=== PATIENT | male | born 1955 | race Caucasian/White ===

== ENCOUNTER 2020-10-01 06:45 | Inpatient (IN) ==
--- NOTE | 2020-08-29 13:52 | PAT Medication Instructions ---
Medication Instructions Date of Service August 29, 2020 Home Medications celecoxib 100 mg PO BID ASK your surgeon for instructions celecoxib 100 mg PO BID Other Notes If you have any questions please call us at [phone] or [phone] or [phone] or [phone]
--- NOTE | 2020-09-04 09:44 | Anesthesiology Consultation ---
Date of Service September 04, 2020 Assessment & Plan (1) Encounter for pre-operative examination: COVID screening: Per assessment on 09/04: Travel screen negative, no known COVID- 19 positive contacts or current COVID-19 related symptoms. Surgeon arranging preop COVID testing. Awaiting results. Chart Review Chart Review: Acceptable Risk for Surgery and Patient seen in Pre Admission Testing Teaching & Discussion Pre-Anesthesia Teaching/Discussion Notes: Instructed NPO after midnight before surgery,except medications with 15 cc of water. Medication instructions provided according to the PAT guidelines. History Surgery Operation Date: 10/01/20 07:15 Proposed Procedures p Right Total Hip Arthroplasty Uncemented - Olivier Lewis DO Height/Weight Height: 6 ft 1 in Weight: 98.6 kg Allergies Allergy/AdvReac Type Severity Reaction Status Date / Time No Known Allergies Allergy Verified 08/26/20 14:22 Medications Home Medications Medication Instructions Recorded Confirmed Last Taken celecoxib 100 mg PO BID 08/26/20 08/26/20 Unknown Past Medical History Medical History Anxiety No meds Depression No meds Hip pain Hx of multiple concussions Most recent 3 yrs ago > no residual effects Irregular heart beats Remote hx (felt r/t episodes of hypoglycemia) > no recent issues (NSR on preop EKG 09/04/20) Sleep apnea No device Exercise / Class Metabolic Activity III < 4 Walking/Shop/Light housework Past Surgical History Surgical History History of colonoscopy History of tonsillectomy History of tooth extraction Hx of vasectomy Past Anesthesia History No Hx of Anesthesia Complications and No Family Hx of Anesthesia Complications History of PONV No Hx of PONV and Hx of Motion Sickness (occasional) Social History Smoking Status: Former smoker Do You Dip or Chew Tobacco: No Smoking End Date: Quit 1979 Alcohol type: beer and hard liquor alcohol intake frequency: a few times a month Hx Substance Use: No substance use type: does not use Review of Systems Patient denies chest pain, shortness of breath, fever, chills, cough, wheezing, palpitations. Physical Exam Vital Signs VITALS BP 125/70 P 68 TEMP 98.0 SP02 96%RA RESP 16 PHYSICAL Full cervical extension range of motion. Full TMJ range of motion. TMD 3 finger breaths Mallampati Score 2 Dentition: missing molars Lungs: clear throughout to auscultation Cardiac: regular rate and rhythm, no murmurs noted Spine: normal Carotid arteries: negative bruit Extremities: no edema Trimmed tang Testing Laboratory Results 09/04/20 10:11 09/04/20 10:11 PT 10.4 Seconds (9.0-12.0) 09/04/20 10:11 INR 1.0 (0.9-1.1) 09/04/20 10:11 APTT 26.8 Seconds (21.0-31.0) 09/04/20 10:11 Hemoglobin A1c 5.8 % (4.5-5.6) H 09/04/20 10:11 Urine Color Yellow 09/04/20 10:11 Urine Appearance Clear (Clear) 09/04/20 10:11 Urine pH 5.0 (4.5-7.5) 09/04/20 10:11 Ur Specific [place] 1.026 (1.000-1.030) 09/04/20 10:11 Urine Protein Trace (Negative) H 09/04/20 10:11 Urine Glucose (UA) Negative (Negative) 09/04/20 10:11 Urine Ketones Negative (Negative) 09/04/20 10:11 Urine Nitrite Negative (Negative) 09/04/20 10:11 Ur Leukocyte Esterase Negative (Negative) 09/04/20 10:11 Urine WBC (Auto) 1-5 /hpf (0-5) 09/04/20 10:11 Urine RBC (Auto) 0-4 /hpf (0-4) 09/04/20 10:11 U Hyaline Cast (Auto) 1-5 /lpf (0-5) 09/04/20 10:11 U Epithel Cells (Auto) 0-5 /lpf (0-5) 09/04/20 10:11 Urine Bacteria (Auto) Negative (Negative) 09/04/20 10:11 Blood Type O Positive 09/04/20 10:11 Antibody Screen NEGATIVE 09/04/20 10:11 Electrocardiogram Date: 09/04/20 Findings: + NSR @ (66) Chest X-Ray Date: 09/04/20 Findings: + NAD
[2020-09-04 10:47] LABS: Basophils # (auto) 0.02 K/uL (0-0.2); Basophils % (auto) 0.3 %; Eosinophils % (auto) 1.3 %; Hematocrit (blood only) 43.4 % (42-52); Hemoglobin 15.1 g/dL (14.0-18.0); Immature Granulocytes # (auto) 0.02 K/uL (0.00-0.02); Immature Granulocytes % (auto) 0.3 %; Lymphocytes % (auto) 29.5 %; Mean Corpuscular Hemoglobin 31.1 pg (25-34); Mean Corpuscular Hgb Conc 34.8 g/dL (32-36); Mean Corpuscular Volume 89.3 fL (80-100); Mean Platelet Volume 9.1 fL (7.4-10.4); Monocytes # (auto) 0.59 K/uL (0.11-0.59); Monocytes % (auto) 7.9 %; Neutrophils # (auto) 4.53 K/uL (1.4-6.5); Neutrophils % (auto) 60.7 %; Platelet Count 264 K/uL (130-400); RDW Coefficient of Variation 13.1 % (11.5-14.5); Red Blood Count 4.86 M/uL (4.7-6.1); White Blood Count 7.46 K/uL (4.8-10.8)
[2020-09-04 10:52] LABS: Appearance Urine Clear (Clear); Bacteria Urine Automated Negative (Negative); Bilirubin Urine Negative (Negative); Blood Urine Negative (Negative); Color Urine Yellow; Epithelial Cell Urine Auto 0-5 /lpf (0-5); Glucose Urine UA Negative (Negative); Ketones Urine Negative (Negative); Leukocyte Esterase Urine Negative (Negative); Nitrite Urine Negative (Negative); Protein Urine Trace (Negative); RBC Urine Automated 0-4 /hpf (0-4); Specific Gravity Urine 1.026 (1.000-1.030); Urobilinogen Urine Negative (Negative)
[2020-09-04 10:54] LABS: Estimated Average Glucose 120 mg/dl; Hemoglobin A1C 5.8 % (4.5-5.6)
--- NOTE | 2020-09-04 10:59 | XRay Report ---
XR chest Pre-admission PA/Lat CLINICAL HISTORY: Preoperative evaluation. COMPARISON STUDY: No previous studies for comparison. FINDINGS: Lung volumes are normal. Lungs are clear. There is no pneumothorax or pleural effusion. Car diac size is normal. Mediastinal contours are normal. There is no evidence for pulmonary edema. IMPRESSION: No acute cardiopulmonary findings. ACT 112: Negative or not required by law. Electronically signed by: Rickie Lazo M.D. 09/04/2020 10:57 AM
[2020-09-04 11:05] LABS: Partial Thromboplastin Time 26.8 Seconds (21.0-31.0); Prothrombin Time 10.4 Seconds (9.0-12.0)
--- NOTE | 2020-09-04 11:38 | Electrocardiogram Report ---
Test Reason : Blood Pressure : / mmHG Vent. Rate : 066 BPM Atrial Rate : 066 BPM P-R Int : 142 ms QRS Dur : 090 ms QT Int : 426 ms P-R-T Axes : 068 047 066 degrees QTc Int : 446 ms Normal sinus rhythm Normal ECG No previous ECGs available Confirmed by Colby Pinto ([id number]) on 09/04/2020 11:38:12 AM Referred By: Olivier Lewis Confirmed By:Colby Pinto
[2020-09-04 12:39] LABS: Albumin Level 3.8 gm/dl (3.4-5.0); Calcium 8.9 mg/dl (8.5-10.1); Creatinine Clr Calc Pharmacy 91.9 ml/min; Est GFR (African American) 92.2; Est GFR (Non-African American) 79.6; Potassium 4.5 mmol/L (3.5-5.1)
--- NOTE | 2020-09-28 13:04 | History & Physical Report ---
Date of Service October 01, 2020 Assessment & Plan (1) Degenerative joint disease of right hip: I have indicated the patient for right anterior total hip replacement. The risks, benefits and complications of surgery were explained to the patient which include but not limited to infection, acute blood loss, DVT/PE, injury to nerves, vessels, bone, soft tissue, arthrofibrosis, chronic pain, failure of the prosthesis, hip dislocation, leg length discrepancy, need for additional surgery, cardiac and pulmonary events and . The patient wished to proceed with surgery and informed consent was obtained at this time. We will plan for 81mg ASA BID post-operatively for DVT prophylaxis. Upon discharge the patient will be discharged home with home health services. Appropriate clearances by PCP were obtained. History of Present Illness Chief Complaint: Right hip pain/DJD Primary Care Provider: Huy Ruby MD The patient is a 64 year old male who presents with complaints of severe right hip pain and DJD. The patient has failed outpatient conservative treatments to this point which included NSAIDs, IA corticosteroid injection, home exercise/walking program. The patient's pain and limited function have progressed to the point where they severely hinder their activities of daily living and they no longer tolerate exercise programs. They are requesting to proceed with total hip replacement surgery. Allergies Allergy/AdvReac Type Severity Reaction Status Date / Time No Known Allergies Allergy Verified 10/01/20 07:37 Home Medications Medication Instructions Recorded Confirmed Type celecoxib 100 mg PO BID 08/26/20 10/01/20 History Past Med/Surg History Medical History Anxiety No meds Depression No meds Hip pain Hx of multiple concussions Most recent 3 yrs ago > no residual effects Irregular heart beats Remote hx (felt r/t episodes of hypoglycemia) > no recent issues (NSR on preop EKG 09/04/20) Sleep apnea No device Surgical History History of colonoscopy History of tonsillectomy History of tooth extraction Hx of vasectomy Social History Smoking Status: Former smoker Smoking End Date: Quit 1979; Second Hand Exposure: No; Do You Dip or Chew Tobacco: No; Tobacco Cessation Education Requested by Patient: No Hx Substance Use: No Preferred Language: Japanese Communication Ability: Effective Food Operations Manager Required: No Beliefs That Will Affect Care: None Current Living Situation: Spouse Other Information That Helps Us Care for You: No Feels Safe at Home: Yes Safety Concerns: Feels Safe At This Time Assistive Devices: Crutches Review of Systems Review of Systems: All systems reviewed & are unremarkable except as noted in HPI & below Constitutional: as per Subjective / HPI Physical Exam Physical Exam: RLE NVSI +EHL/FHL/TA/GS SILT grossly, +2 DP pulse, compartments soft NT, limited painful ROM of the hip, antalgic gait. Constitutional: WD/WN, vitals as above Eyes: PERRL, conjunctivae normal, anicteric sclerae ENMT: external ear and nose normal, oropharynx normal Neck: trachea midline, no thyromegaly Respiratory: normal respiratory effort, lungs clear to auscultation Cardiovascular: RRR, no murmur, no edema Gastrointestinal (Abdomen): normal bowel sounds, soft, nontender, no hepatosplenomegaly Musculoskeletal: no cyanosis or clubbing, extremities motor strength 5/5 Skin: no rashes, warm and dry Neurologic: patellar DTR's 2+ bilat, sensation intact Psychiatric: A+Ox3, euthymic affect Lymphatic: no cervical or axillary lymphadenopathy Results & Data Results & Data ([facility]) Diagnostic Findings Multiple views of the hip demonstrates severe DJD with complete loss of the join t space. +osteophytes, +sclerosis, +subchondral cysts. Pre Admission Testing Addendum Laboratory Results 09/04/20 10:11 09/04/20 10:11 PT 10.4 Seconds (9.0-12.0) 09/04/20 10:11 INR 1.0 (0.9-1.1) 09/04/20 10:11 APTT 26.8 Seconds (21.0-31.0) 09/04/20 10:11 Hemoglobin A1c 5.8 % (4.5-5.6) H 09/04/20 10:11 Urine Color Yellow 09/04/20 10:11 Urine Appearance Clear (Clear) 09/04/20 10:11 Urine pH 5.0 (4.5-7.5) 09/04/20 10:11 Ur Specific [place] 1.026 (1.000-1.030) 09/04/20 10:11 Urine Protein Trace (Negative) H 09/04/20 10:11 Urine Glucose (UA) Negative (Negative) 09/04/20 10:11 Urine Ketones Negative (Negative) 09/04/20 10:11 Urine Nitrite Negative (Negative) 09/04/20 10:11 Ur Leukocyte Esterase Negative (Negative) 09/04/20 10:11 Urine WBC (Auto) 1-5 /hpf (0-5) 09/04/20 10:11 Urine RBC (Auto) 0-4 /hpf (0-4) 09/04/20 10:11 U Hyaline Cast (Auto) 1-5 /lpf (0-5) 09/04/20 10:11 U Epithel Cells (Auto) 0-5 /lpf (0-5) 09/04/20 10:11 Urine Bacteria (Auto) Negative (Negative) 09/04/20 10:11 Blood Type O Positive 09/04/20 10:11 Antibody Screen NEGATIVE 09/04/20 10:11
[~2020-10-01 06:45] MED LIST: ACETAMINOPHEN 500 MG TAB PO SCH; BUPIVACAINE 0.5 % 5 MG/1 ML PF 10ML VIAL ONE; CeleBREX 200 MG CAP PO SCH; FAMOTIDINE 20 MG TAB PO SCH; GABAPENTIN 300 MG CAP PO SCH; LR 500ML BOLUS, THEN 15ML/HR IV SCH; METOCLOPRAMIDE HCL 10 MG TABLET PO SCH; ROPIVACAINE 0.5% HCL/PF 150 MG, BUPIVACAINE 0.75% MPF 20 ML, EPINEPHrine 30MG/30ML (OR ... INSTIL SCH; TRANEXAMIC ACID 1,000 MG **IV Intra-op IV SCH; TRANEXAMIC ACID 1,000 MG **IV Pre-op IV SCH; ceFAZolin 2000MG 2,000 MG/15 ML SYR IV SCH; dexAMETHasone 4 MG TAB PO SCH
[2020-10-01] MEDS ORDERED: PROPOFOL IV EMULSION 10 MG/ML 20 ML VIAL IV ONE ×4 (07:57→10:47)
[2020-10-01] MEDS ORDERED: fentaNYL citrate 100 MCG/2 ML VIAL IV PRN (07:57)
[2020-10-01] MEDS ORDERED: MIDAZOLAM HCL 1 MG/ML 2ML VIAL ONE (07:57)
[2020-10-01] MEDS ORDERED: ePHEDrine sulfate 50 MG/ML AMP IV PRN (07:57)
[2020-10-01] MEDS ORDERED: HYDROmorphone INJ 1 MG/ML SYRINGE IV PRN (07:57)
[2020-10-01] MEDS ORDERED: PHENYLEPHRINE 100MCG/ML 5ML SYR IV PRN (07:57)
[2020-10-01] MEDS ORDERED: ONDANSETRON INJ 2 MG/ML 2 ML VIAL IV PRN ×2 (07:57→14:23)
[2020-10-01] MEDS ORDERED: MEPERIDINE HCL 25 MG/ML CARP/VIAL IV PRN (07:57)
[2020-10-01] MEDS ORDERED: ATROPINE SULFATE 0.1 MG/ML 10ML SYR IV PRN (07:57)
[2020-10-01] MEDS ORDERED: LABETALOL HCL IV 5 MG/ML 20ML IV PRN (07:57)
[2020-10-01] MEDS ORDERED: fentaNYL citrate 100 MCG/2 ML VIAL ONE (07:57)
--- NOTE | 2020-10-01 09:06 | History & Physical Bridge Note ---
Date of Service October 01, 2020 History & Physical Bridge Note I have examined the patient, reviewed the History & Physical and in the interval since the performance of the History & Physical I have noted the following changes of clinical significance: no changes noted
[2020-10-01] MEDS ORDERED: ORTHO JOINT ANESTHETIC ONE (09:21)
[2020-10-01] MEDS ORDERED: KETAMINE 50 MG/5 ML SYRINGE ONE (09:55)
--- NOTE | 2020-10-01 11:26 | Post Operative Brief Note ---
Immediate Post Op Note v1 Date of Surgery October 01, 2020 Pre & Post Diagnosis Operation Date: 10/01/20 09:35 Pre-Op Diagnosis: Unilateral Primary Osteoarthritis Right Hip Post-Op Diagnosis: Unilateral Primary Osteoarthritis Right Hip I identified the patient and participated in the time-out.: Yes Procedure Operation Date: 10/01/20 09:35 Actual Procedures p Right Total Hip Arthroplasty Uncemt Anterior Approach(Right) - Olivier Lewis DO Surgeon Olivier Lewis DO [employer] Malvin Davis Estimated Blood Loss 190 Findings Consistent with Post-Op Diagnosis Fluids See anesthesia report Specimens Femoral head Anesthesia Type Spinal MAC Complications none Disposition Disposition: Recovery Room Overlapping Procedure I was present for: the critical portions of procedure. I was immediately available: during the entire case. Back up surgeon: was not required during procedure.
--- NOTE | 2020-10-01 11:27 | Operative Report ---
Post Operative Report Pre & Post Diagnosis Operation Date: 10/01/20 09:35 Pre-Op Diagnosis: Unilateral Primary Osteoarthritis Right Hip Post-Op Diagnosis: Unilateral Primary Osteoarthritis Right Hip I identified the patient and participated in the time-out.: Yes Procedure Operation Date: 10/01/20 09:35 Actual Procedures p Right Total Hip Arthroplasty Uncemt Anterior Approach(Right) - Olivier Lewis DO Surgeon Olivier Lewis DO Ice Cream Server Malvin Davis Estimated Blood Loss 190 Findings Consistent with Post-Op Diagnosis Fluids See anesthesia report Specimens Femoral head Anesthesia Type Spinal MAC Complications none Disposition Disposition: Recovery Room Indications The patient is a 64-year-old male who presents with severe progressive right hip DJD who has failed outpatient conservative treatments. I indicated the patient for a anterior total hip replacement and the risks and benefits were explained in detail which include but not limited to infection, bleeding, blood clot, damage to surrounding bone, nerves, vessels, soft tissue, hip dislocation, failure of the prosthesis, leg length discrepancy, need for additional surgery and . The patient agreed to proceed with replacement of the hip and informed consent was obtained. Appropriate clearances were obtained. Description of Procedure COMPONENTS USED: [email or web address] hip system: Acetabulum size 54, femur size 15 extended offset, femoral head 36+3.5, liner 54x36, acetabular screw 30 mm x 1. DESCRIPTION OF PROCEDURE: Following satisfactory spinal anesthesia, the patient was placed supine on the OR table. The left leg was placed in the well leg valdez and the right leg in the traction device. The right leg was prepared wi th ChloraPrep and draped sterilely. A surgical timeout was performed, patient identified and site madison verified. Appropriate antibiotics were given. A standard anterior approach in the interval between the sartorius and tensor muscles was performed. Dissection was carried down through subcutaneous tissues. Electrocautery was utilized for hemostasis. Circumflex femoral vessels were identified, tied and ligated. The anterior capsular fat pad was removed and the capsulotomy was performed revealing the arthritic femoral neck and head. A femoral neck cut was made with reciprocating saw and the bone fragments removed. The acetabular self-retraining retractor was placed. Acetabular reaming was completed under fluoroscopic guidance, a 54 shell was impacted into an anatomic position and secured with a acetabular screw. Local anesthetic was placed and following irrigation, the polyethylene liner was placed. The femur was placed into position of external rotation, extension and adducti on. Femoral canal was prepared up to the size 15 extended offset. Trial reduction with a 36+3.5 neck length head showed good soft tissue tension, leg lengths restored, and good fit and fill of the proximal canal using fluoroscopic landmarks. The hip was dislocated. The trial component was removed. The final implant was placed. The hip was irrigated with sterile saline solution and reduced. A Betadine soak was performed. After 3 minutes, the hip was once more irrigated with copious sterile saline solution with bacitracin. Susie-incisional soft tissue was injected utilizing [place] [employer] which includes a combination of Ropivicaine 0.5% 150mg, Bupivicaine 0.5%/Epinephrine 1:200,000 30ml, Toradol 30mg, Dexamethasone 4mg, Ketamine 10mg, Clonidine 100mcg and NSS 30ml solution. The capsule was then closed with 1-0 Vicryl interrupted figure of eight sutures. The fascia was closed with a running suture of #1 Vicryl, the subcutaneous tissues with 2-0 Vicryl and the skin was closed with jevon and a sterile dry dressing was applied which included surinder incisional VAC. The patient tolerated the procedure well and was transported to PACU in stable condition. Due to the complex nature of the procedure, the entire surgery was performed with the operational assistance of Malvin Davis PA-C. The assistant manager pt, under direct supervision, was involved in the actual performance of all aspects of the surgical procedure including patient positioning, hemostasis, tissue retraction, instrument management and wound closure. I attest to the content of the Intraoperative Record and any orders documented therein. Any exceptions are noted below.
--- NOTE | 2020-10-01 11:52 | Fluoroscopy Report ---
FL hip RT 1V CLINICAL HISTORY: RT ANTERIOR HIP COMPARISON STUDY: None. FLUOROSCOPY TIME: 30 seconds. FLUOROSCOPIC IMAGES: 2 FINDINGS: Fluoroscopy was provided during total right hip arthroplasty. Hardware is intact. No peripr osthetic fracture. There are no unexpected radiopaque foreign bodies. There is an acetabular screw. IMPRESSION: Fluoroscopy provided during total right hip arthroplasty. ACT 112: Negative or not required by law. Electronically signed by: Rickie Lazo M.D. 10/01/2020 11:51 AM
--- NOTE | 2020-10-01 12:27 | Anesthesiology Progress Note ---
Date of Service October 01, 2020 Anesthesia Post Procedure Vital Signs Vital Signs: Temp Pulse Pulse Resp BP Pulse Ox 10/01/20 12:25 60 12 113/71 98 10/01/20 12:15 62 20 116/73 96 10/01/20 12:05 62 12 101/65 98 10/01/20 11:55 61 12 93/57 L 99 10/01/20 11:48 36.2 C L 64 14 89/52 L 98 10/01/20 07:29 36.9 C 79 20 124/85 97 Pain Intensity Right Hip: Pain Intensity: 1 Transfer of Care Handoff Completed per policy Notes Mental Status: alert / awake / arousable Patient Amnestic to Procedure: Yes Nausea / Vomiting: adequately controlled Pain: adequately controlled Airway Patency, RR, SpO2: stable & adequate BP & HR: stable & adequate Hydration State: stable & adequate Neuraxial Anesthesia: was administered and sensory block is resolving Anesthetic Complications: no major complications apparent and Pt Satisfied with anesthetic care
--- NOTE | 2020-10-01 13:50 | XRay Report ---
XR hip 1V RT w pelvis CLINICAL HISTORY: Postoperative evaluation. COMPARISON: None FINDINGS: Alignment of the total right hip arthroplasty is anatomic. There is no periprosthetic frac ture or unexpected radiopaque foreign body. There is an acetabular screw. There are skin jevon. IMPRESSION: Expected findings following total right hip arthroplasty. ACT 112: Negative or not required by law. Electronically signed by: Rickie Lazo M.D. 10/01/2020 1:49 PM
[2020-10-01] MEDS ORDERED: oxyCODONE HCL IR 5 MG TAB (IMMEDIATE RELEASE) PO PRN (14:23)
[2020-10-01] MEDS ORDERED: NALOXONE HCL 0.4 MG/1 ML VIAL/CARP IV PRN (14:23)
[2020-10-01] MEDS ORDERED: MAGNESIUM HYDROXIDE SUSP 30 ML UDC PO PRN (14:23)
[2020-10-01] MEDS ORDERED: METOCLOPRAMIDE HCL INJ 5 MG/ML 2 ML VIAL IV PRN (14:23)
[2020-10-01] MEDS ORDERED: diphenhydrAMINE Capsule 25 MG CAP PO PRN (14:23)
[2020-10-01] MEDS ORDERED: HYDROmorphone INJ 0.5 MG/0.5 ML SYR IV PRN (14:23)
[2020-10-01] MEDS ORDERED: bisacodyL 10 MG SUPP PR PRN (14:23)
--- NOTE | 2020-10-01 14:59 | Orthopedic Progress Note ---
Date of Service October 01, 2020 Assessment & Plan (1) Degenerative joint disease of right hip: Status post right anterior total hip arthroplasty -Ancef x24 -DVT prophylaxis: SCDs, teds, 81 mg ASA twice daily -Weight-bear as tolerated right lower extremity with assistive device -PT/OT -Postoperative x-ray demonstrates well aligned well fixed prosthesis without fracture or dislocation -A.m. labs -DC planning Admission and Anticipated Discharge Date Admission Date: October 01, 2020 Subjective Post Operative Progress Note Patient seen sitting up in bed, comfortable, denies complaints, pain well controlled, no acute issues. Review of Systems Review of Systems: All systems reviewed & are unremarkable except as noted in HPI & below Constitutional: as per Subjective / HPI Physical Exam Physical Exam: Physical exam right lower extremity limited secondary to spinal anesthesia, +2 dorsalis pedis pulse, compartment soft nontender, dressing clean dry and intact. Constitutional: WD/WN, vitals as above Results & Data ([place]) Vital Signs (Past 12 Hours) Vital Signs Temp Pulse Pulse Resp BP Pulse Ox 10/01/20 14:55 79 16 135/83 99 10/01/20 13:15 68 14 113/69 98 10/01/20 13:05 49 L 12 103/71 97 10/01/20 12:55 59 L 10 L 104/64 97 10/01/20 12:45 57 L 10 L 104/73 93 10/01/20 12:35 60 13 113/71 97 10/01/20 12:25 60 12 113/71 98 10/01/20 12:15 62 20 116/73 96 10/01/20 12:05 62 12 101/65 98 10/01/20 11:55 61 12 93/57 L 99 10/01/20 11:48 36.2 C L 64 14 89/52 L 98 10/01/20 07:29 36.9 C 79 20 124/85 97
[2020-10-01] MEDS ORDERED: PNEUMOCOCCAL POLYSACCHARIDES 25 MCG/0.5 ML VIAL/SYR IM ONE (15:30)
[2020-10-01] MEDS: SODIUM CHLORIDE 0.9% 1000ML 1,000 ML IV SCH (15:50)
[2020-10-01] MEDS: ACETAMINOPHEN 500 MG TAB PO SCH ×2 (15:51→22:48)
[2020-10-01] MEDS: KETOROLAC TROMETHAMINE 15 MG/ML VIAL IV SCH ×2 (15:52→20:00)
[2020-10-01] MEDS: ceFAZolin 2000MG 2,000 MG/15 ML SYR IV SCH (18:12)
[2020-10-01] MEDS: DOCUSATE SODIUM 100 MG CAP PO SCH (19:58)
[2020-10-01] MEDS ORDERED: SENNA 8.6 MG TAB PO SCH (21:00)
[2020-10-02] MEDS: ceFAZolin 2000MG 2,000 MG/15 ML SYR IV SCH (02:04)
[2020-10-02] MEDS: KETOROLAC TROMETHAMINE 15 MG/ML VIAL IV SCH ×2 (02:04→09:01)
[2020-10-02] MEDS: SODIUM CHLORIDE 0.9% 1000ML 1,000 ML IV SCH (02:10)
[2020-10-02] MEDS: ACETAMINOPHEN 500 MG TAB PO SCH (06:06)
[2020-10-02 07:14] LABS: Hematocrit (blood only) 35.3 % (42-52); Hemoglobin 12.1 g/dL (14.0-18.0); Immature Granulocytes # (auto) 0.02 K/uL (0.00-0.02); Immature Granulocytes % (auto) 0.1 %; Lymphocytes # (auto) 1.06 K/uL (1.2-3.4); Lymphocytes % (auto) 7.7 %; Mean Corpuscular Hemoglobin 30.8 pg (25-34); Mean Corpuscular Hgb Conc 34.3 g/dL (32-36); Mean Corpuscular Volume 89.8 fL (80-100); Mean Platelet Volume 8.9 fL (7.4-10.4); Monocytes # (auto) 1.03 K/uL (0.11-0.59); Monocytes % (auto) 7.4 %; Neutrophils # (auto) 11.73 K/uL (1.4-6.5); Neutrophils % (auto) 84.8 %; Platelet Count 184 K/uL (130-400); RDW Coefficient of Variation 12.9 % (11.5-14.5); RDW Standard Deviation 42.5 fL (36.4-46.3); Red Blood Count 3.93 M/uL (4.7-6.1); White Blood Count 13.84 K/uL (4.8-10.8)
[2020-10-02 07:45] LABS: BUN Creatinine Ratio 19.7 (10-20); Calcium 8.5 mg/dl (8.5-10.1); Creatinine Clr Calc Pharmacy 101.8 ml/min; Est GFR (Non-African American) 89.7 ml/min; Potassium 4.2 mmol/L (3.5-5.1)
[2020-10-02] MEDS ORDERED: MULTIVITAMIN TAB PO SCH (09:00)
[2020-10-02] MEDS ORDERED: ASPIRIN 81 MG ECTAB PO SCH (09:00)
[2020-10-02] MEDS: DOCUSATE SODIUM 100 MG CAP PO SCH (09:01)
--- NOTE | 2020-10-02 11:30 | Orthopedic Progress Note ---
Date of Service October 02, 2020 Assessment & Plan (1) Degenerative joint disease of right hip: Status post right anterior total hip arthroplasty POD#1 -Ancef x24 -DVT prophylaxis: SCDs, teds, 81 mg ASA twice daily -Weight-bear as tolerated right lower extremity with assistive device -PT/OT -Postoperative x-ray demonstrates well aligned well fixed prosthesis without fracture or dislocation -A.m. labs - as above, hgb 12.1 -DC planning - home with Admission and Anticipated Discharge Date Admission Date: October 01, 2020 Subjective Post Operative Progress Note Patient seen sitting up in bed, comfortable, denies complaints, pain well controlled, no acute issues. Denies F/C/N/V/SOB/CP. Review of Systems Review of Systems: All systems reviewed & are unremarkable except as noted in HPI & below Constitutional: as per Subjective / HPI Physical Exam Physical Exam: RLE NVSI +EHL/FHL/TA/GS SILT grossly, +2 DP pulse, compartments soft NT, dressing cdi. Constitutional: WD/WN, vitals as above Results & Data ([facility]) Vital Signs (Past 12 Hours) Vital Signs Temp Pulse Pulse Resp BP Pulse Ox 10/02/20 08:00 36.6 C 63 16 132/79 96 10/02/20 07:59 36.6 C 63 18 130/78 96 10/02/20 07:17 36.6 C 63 16 132/79 96 10/02/20 03:52 36.8 C 78 18 131/78 97 Laboratory Results 10/02/20 10/02/20 Range/Units 07:04 07:04 WBC 13.84 H (4.8-10.8) K/uL RBC 3.93 L (4.7-6.1) M/uL Hgb 12.1 L (14.0-18.0) g/dL Hct 35.3 L (42-52) % MCV 89.8 (80-100) fL MCH 30.8 (25-34) pg MCHC 34.3 (32-36) g/dL RDW Std Deviation 42.5 (36.4-46.3) fL RDW Coeff of Colin 12.9 (11.5-14.5) % Plt Count 184 (130-400) K/uL MPV 8.9 (7.4-10.4) fL Immature Gran % (Auto) 0.1 % Neut % (Auto) 84.8 % Lymph % (Auto) 7.7 % [place] % (Auto) 7.4 % Eos % (Auto) 0.0 % Baso % (Auto) 0.0 % Neut # (Auto) 11.73 H (1.4-6.5) K/uL Lymph # (Auto) 1.06 L (1.2-3.4) K/uL [place] # (Auto) 1.03 H (0.11-0.59) K/uL Eos # (Auto) 0.00 (0-0.5) K/uL Baso # (Auto) 0.00 (0-0.2) K/uL Immature Gran # (Auto) 0.02 (0.00-0.02) K/uL Sodium 140 (136-145) mmol/L Potassium 4.2 (3.5-5.1) mmol/L Chloride 111 H (98-107) mmol/L Carbon Dioxide 25 (21-32) mmol/L Anion Gap 4.0 (3-11) BUN 18 (7-18) mg/dl Creatinine 0.89 (0.6-1.4) mg/dl Est Cr Clr Drug Dosing 101.8 ml/min Est GFR ( Amer) 104.0 ml/min Est GFR (Non-Af Amer) 89.7 ml/min BUN/Creatinine Ratio 19.7 (10-20) Glucose 144 H (70-99) mg/dl Calcium 8.5 (8.5-10.1) mg/dl
[2020-10-02] MEDS ORDERED: CeleBREX 200 MG CAP PO SCH (21:00)
--- NOTE | 2020-10-02 22:43 | Discharge Summary ---
Date of Service October 02, 2020 Admission HPI Per Admitting Provider The patient is a 64 year old male who presents with complaints of severe right hip pain and DJD. The patient has failed outpatient conservative treatments to this point which included NSAIDs, IA corticosteroid injection, home exercise/walking program. The patient's pain and limited function have progressed to the point where they severely hinder their activities of daily living and they no longer tolerate exercise programs. They are requesting to proceed with total hip replacement surgery. Principal Diagnosis Right anterior total hip replacement Discharge Exam RLE NVSI +EHL/FHL/TA/GS SILT grossly, +2 DP pulse, compartments soft NT, dressing cdi. Constitutional WD/WN, vitals as above Discharge Data Allergies Allergy/AdvReac Type Severity Reaction Status Date / Time No Known Allergies Allergy Verified 10/01/20 07:37 Procedures Performed Operation Date: 10/01/20 09:35 Actual Procedures p Right Total Hip Arthroplasty Uncemt Anterior Approach(Right) - Olivier Lewis DO Ordered Studies 10/01/20 09:35 FL hip RT 1V Routine Hospital Course (1) Degenerative joint disease of right hip: The patient is a 64 -year-old male who presents with long standing history of severe right hip DJD and failed outpatient conservative treatments. The patient's symptoms have progressed to the point where it has been difficult to perform even normal activities of daily living. I indicated the patient for a right anterior total hip arthroplasty, the risks, benefits and complications of the procedure include but not limited to infection, bleeding, damage to bone, nerves, vessels, surrounding soft tissue, may develop blood clots, loss of function, leg length discrepancy, dislocation, failure of the components, loosening of the components, the need for additional surgery and . The patient wished to proceed with surgery at this time and informed consent was obtained. Hospital Course: On 10/01/20 the patient was taken to the operating room, adequate anesthesia administered and underwent a right anterior total hip arthroplasty. The patient tolerated the procedure well and was taken to the PACU in stable condition. Post-operatively the patient was started on a DVT ppx medication and given appropriate IV antibiotics. Consults were placed to physical therapy, occupational therapy and case management. On POD#1, the patient did well overnight and their pain was well controlled. Labs were drawn and the Hgb was 12.1. The patient progressed well with PT. Dressings were changed at this time and the incision was clean, dry and intact. The patients hospital stay was relatively uneventful and they were deemed stable by the orthopedic team and consultants to be discharged home with HH on 10/02/20. Discharge Instructions: Upon discharge the patient may weight bear as tolerates through their operative extremity. They were instructed to keep the incision clean and dry at all times. The patient may shower but should not submerge the incision, avoid bathing, pools and hot tubs. The patient was given a script for pain medication and should take as instructed. The patient was given a script for DVT ppx 81mg ASA BID and should take as directed. The patient was instructed to not drive or travel for long distances until cleared to do so. If the patient develops any symptoms of fevers, chills, nausea, vomiting, increased redness, swelling, pain or drainage from the surgical site, they should notify the office and/or proceed to the nearest emergency room. The patient should follow up in 10-14 days after surgery for their routine post-operative follow-up appointment and should call the office, to confirm the date and time. Status post right anterior total hip arthroplasty POD#1 -Ancef x24 -DVT prophylaxis: SCDs, teds, 81 mg ASA twice daily -Weight-bear as tolerated right lower extremity with assistive device -PT/OT -Postoperative x-ray demonstrates well aligned well fixed prosthesis without fracture or dislocation -A.m. labs - as above, hgb 12.1 -DC planning - home with Total Time Total Time Spent Total Time Spent (In Minutes): 30 Discharge Plan Discharge Items Patient Disposition: Home - Home Health Services Reason For Visit: Unilateral Primary Osteoarthritis Right Hip Discharge Diagnosis: Right anterior total hip replacement Condition on Discharge: Good Activity: Per Instructions section Lifting: Wait until after follow-up appointment Bathing: Keep incision dry Bathing Comment: No bathing, pools or hot tubs. Sexual Activity: Wait until after follow-up appointment Exercise/Sports: Wait until after follow-up appointment Driving/Machine Use: No driving. Weightbearing: Full weightbearing Non-emergency contact: Primary Care Provider and Surgeon Call non-emergency contact if: you have any medication questions, your symptoms worsen, your pain is not controlled, your pain is worsening, your pain is unusual for you, your pain is concerning for you, you have a fever, your temperature is above 101, your wound has increased redness, your wound has increased drainage and your wound pain has increased Follow-up/Referrals: Huy Ruby MD [Primary Care Provider] - Diet: Regular Addtl Attending Provider Instructions: ACTIVITY RECOMMENDATIONS: SELF CARE INSTRUCTIONS AFTER TOTAL HIP REPLACEMENT : Direct Anterior Approach Until the incision and soft tissues around your hip have healed, there is a possibility that the hip prosthesis could dislocate. A. Hip flexion ( Up & Down out of chair or steps ) may be difficult. This is normal. B. Numbness in front of the thigh is also normal for a few weeks. C. Use hand rails when walking on stairs. D. Wear low heeled shoes with non-slip soles. E. Be sure that your floors are free of things that could trip you - throw rugs, electrical cords, small objects. Avoid wet and waxed floors, especially with crutches and canes. F. Try to walk several times a day with rest periods between. G. Continue with all the exercises taught to you in the hospital. Again, make walking a part of your daily routine. SPECIAL CARE INSTRUCTIONS: VERY IMPORTANT TO READ AND REVIEW A. You may still be at risk for phlebitis and blood clots. 1. Wear surgical stockings (MADDY hose) for 2 weeks after surgery to improve circulation and reduce swelling. 2. Take Aspirin 81mg twice daily for 4 weeks or as directed by your doctor. This is your blood thinner. 3. High risk patients may be prescribed a stronger blood thinner if necessary. 4. If you are on Coumadin normally, your family doctor/personal lines appraiser should monitor your blood work. Expect a phone call the day of or the day after bloodwork is drawn to adjust your dosage. B. You must take antibiotics before having dental work, bladder, bowel and other surgery. Your doctor will provide you with a permanent card to carry describing precautions. C. Call [facility] if you have a fever, redness or swelling around the incision, cloudy drainage from incision, or sudden increase in pain in your hip, not relieved by your regular pain medication. D. Please call the office at if you have any concerns or questions about your operation or recovery. * YOU MAY SHOWER, NO TUB BATHS UNTIL CLEARED BY YOUR DOCTOR. - Keep an extra close eye on the top portion of your incision. Be sure to keep clean & dry. * WEAR MADDY HOSE 20 HOURS PER DAY FOR 2 WEEKS. * YOU MAY PROGRESS FROM A WALKER, TO A CANE, TO INDEPENDENT AT YOUR OWN PACE. * MOST PATIENTS WILL HAVE HOME NURSING FOR THERAPY. IF YOU DECIDE TO DO OUTPATIENT PHYSICAL THERAPY, PLEASE SCHEDULE THIS 3 TIMES PER WEEK. *MARKEL incisional vac is a special dressing covering your incision. This dressing provides a sterile dry environment while you are healing. The dressing is to be left in place for 7 days post-operatively. Your home nurse or surgeon will remove. If you develop any redness or blisters or have any questions notify your surgeon immediately. FOLLOW UP VISIT: If appointment is not already scheduled: Please call [facility] to make a follow-up appointment for 2 weeks after your surgery at . Pending Studies at Discharge: No Stand-Alone Forms: My [facility] Play With Pictures / HangPic, Opioid Pain Management, Smoking Cessation Medications and DC Order Prescriptions: New acetaminophen 500 mg Tablet 1,000 mg PO Q8 PRN (Reason: fever or pain) Qty: 90 RF: 0 aspirin 81 mg Tablet,Delayed Release (Dr/Ec) 81 mg PO BID Qty: 56 RF: 0 celecoxib [Celebrex] 200 mg Capsule 200 mg PO BID PRN (Reason: pain/inflammation) Qty: 30 RF: 0 oxycodone 5 mg Tablet 5 mg PO Q6H MDD 4 PRN (Reason: pain) Qty: 30 RF: 0 sennosides [Senokot] 8.6 mg Tablet 17.2 mg PO HS PRN (Reason: constipation) Qty: 30 RF: 0 Discontinued celecoxib 100 mg Capsule 100 mg PO BID RF: 0 Discharge Orders: Discharge Order (Routine); Ordered 10/02/20 Ordered By: Olivier Suresh/Other Patient Handouts: DVT Post Op Prevention, ED Salena Isidro Admission Data Admit Date/Time: 10/01/20 11:58 Attending Provider: Olivier Lewis Admit Provider: Olivier Lewis Primary Care Provider: Huy Ruby V. Other Providers: [facility],Home [facility] Other Interventions: Discharge Summary Assessment (RN) Last Done: 10/02/20 08:00
== END 2020-10-02 12:13 | disposition home health service (06) | DRG 470 ==
LOC: 3E 06:45 → ASU 06:45 → OBSVTOIN 11:58